=== PATIENT | female | born 1965 | race Caucasian/White ===

== ENCOUNTER 2022-10-10 16:52 | Outpatient (CLI) | payer BC ==
--- NOTE | 2022-10-11 09:27 | CT Report ---
PROCEDURE: Low Dose Lung Cancer Screen INDICATIONS: HIST OF TOBACCO USE, THYROID NODULE TECHNIQUE: Noncontrast low-dose axial images were acquired from the pulmonary apices to the posterior costophren ic angles. Multiplanar MIP reformats were then reconstructed. For radiation dose reduction, the follo wing was used: automated exposure control, adjustment of mA and/or kV according to patient size. COMPARISON: None. FINDINGS: Image quality: Good Lungs and pleura: No dense consolidation or pleural effusion. Bochdalek's hernias. Scattered scarring/atelectasis. No nodule identified measuring over 6 mm. Possible micronodule on geovanni ge on the right. Mediastinum, heart, and esophagus: No pathologic adenopathy. Heart size is normal. No hiatal hernia. Chest wall and thyroid: Unremarkable Upper abdomen: Gastric bypass anatomy. Low-attenuation liver dome lesions, probably cysts. Subcentime ter lesions are too small to characterize. Bones: No acute or suspicious osseous finding. IMPRESSION: Lung RADS 2: Continue annual screening. Reviewed by: Dez De Souza MD on 10/11/2022 9:26 AM PST Approved by: Dez De Souza MD on 10/11/2022 9:26 AM PST Station ID: [id number]
== END 2022-10-10 16:53 | disposition home or self-care (01) ==
LOC: DI 16:52
PROVIDERS: ATTEND Physician Assistant
DX: Z12.2 Encounter for screening for malignant neoplasm of respiratory organs (principal); Z87.891 Personal history of nicotine dependence

== ENCOUNTER 2022-10-15 07:16 | Outpatient (CLI) | payer BC ==
[2022-10-15 08:21] LABS: BASOPHILS % (AUTO) 0.7 %; EOSINOPHILS # (AUTO) 0.1 10^3/uL (0.0-0.7); EOSINOPHILS % (AUTO) 2.5 %; HCT - HEMATOCRIT 36.9 % (37.0-47.0); HGB - HEMOGLOBIN 12.1 g/dL (12.0-16.0); LYMPHOCYTES # (AUTO) 2.2 10^3/uL (1.5-3.5); MEAN CORPUSCULAR HEMOGLOBIN 30.9 pg (27.0-31.0); MEAN CORPUSCULAR HGB CONC 32.8 g/dL (32.0-36.0); MEAN CORPUSCULAR VOLUME 94.1 fL (81.0-99.0); MEAN PLATELET VOLUME 9.8 fL (7.9-10.8); MONOCYTES # (AUTO) 0.4 10^3/uL (0.0-1.0); MONOCYTES % (AUTO) 9.1 %; NEUTROPHILS # (AUTO) 1.7 10^3/uL (1.5-6.6); NEUTROPHILS % (AUTO) 38.5 %; PLT - PLATELET COUNT 277 10^3/uL (130-450); RED BLOOD COUNT 3.92 10^6/uL (4.20-5.40); RED CELL DISTRIBUTION WIDTH 12.9 % (12.0-15.0); WHITE BLOOD COUNT 4.4 x10^3/uL (4.8-10.8)
[2022-10-15 08:47] LABS: ALBUMIN 4.2 g/dL (3.2-5.5); ALBUMIN/GLOBULIN RATIO 1.4 (1.0-2.2); ALKALINE PHOSPHATASE 44 IU/L (42-121); ALT ALANINE AMINOTRANSFERASE 20 IU/L (10-60); AST ASPARTATE AMINOTRANSFERASE 36 IU/L (10-42); BILIRUBIN,TOTAL 0.7 mg/dL (0.2-1.0); BUN - BLOOD UREA NITROGEN 18 mg/dL (6-20); CALCIUM 9.1 mg/dL (8.5-10.3); CARBON DIOXIDE - CO2 27 mmol/L (21-32); CHLORIDE 102 mmol/L (101-111); CHOL/HDL RATIO 2.6 (<4.4); CHOLESTEROL 169 mg/dL; CREATININE 0.7 mg/dL (0.4-1.0); GFR - MDRD 86 (>89); GLUCOSE 95 mg/dL (70-100); HDL CHOLESTEROL 66 mg/dL; POTASSIUM 4.4 mmol/L (3.5-5.0); SODIUM 136 mmol/L (135-145); TOTAL PROTEIN 7.2 g/dL (6.7-8.2); TRIGLYCERIDES 28 mg/dL
[2022-10-15 08:53] LABS: THYROID STIMULATING HORMONE 1.69 uIU/mL (0.34-5.60)
[2022-10-15 08:55] LABS: FREE T4 (FREE THYROXINE) 0.83 ng/dL (0.58-1.64)
--- NOTE | 2022-10-15 10:33 | Ultrasound Report ---
PROCEDURE: Head or Neck Soft Tissue INDICATIONS: HIST OF TOBACCO USE, THYROID NODULE TECHNIQUE: Real-time scanning was performed of the thyroid gland, with image documentation. COMPARISON: None FINDINGS: Right: Thyroid lobe measures 4.6 x 1.4 x 1.8 cm, and is homogeneous in echotexture. Left: Thyroid lobe measures 4.6 x 1.0 x 1.7 cm, and is homogenous in echotexture. Isthmus: 2 mm thick. Nodule number: One Location: Right lobe superior-mid Size: 1.8 x 1.1 x 1.4 cm. Composition: Cystic Total points: 0 ACR TI-RADS category: 1 Nodule number: Two Location: Right lobe mid Size: 1.1 x 0.6 x 0.9 cm. Composition: Predominantly solid Echogenicity: Hypoechoic Shape: wider than tall. Margins: Smooth Echogenic foci: Punctate Total points: 7 ACR TI-RADS category: 5 Nodule number: Three Location: Right lobe medial Size: 0.8 x 0.5 x 0.7 cm. Composition: Solid Echogenicity: Hypoechoic Shape: wider than tall. Margins: Smooth Echogenic foci: None Total points: 4 ACR TI-RADS category: 4 Nodule number: Four Location: Left lobe inferior Size: 0.6 x 0.4 x 0.6 cm. Composition: Cystic and solid Echogenicity: Hypoechoic Shape: wider than tall. Margins: Smooth Echogenic foci: None Total points: 3 ACR TI-RADS category: 3 Nodule number: Five Location: Left lobe medial Size: 0.8 x 0.5 x 0.6 cm. Composition: Cystic Total points: 0 ACR TI-RADS category: 1 IMPRESSION: 1. Multiple thyroid nodules/cysts as above. 2. Nodule #2 at the right mid thyroid gland meets TI-RADS criteria for FNA recommendation. Follow-up for other nodules recommended as below. ACR TI-RADS definitions and recommendations: TI-RADS 1 (benign): 0 points. FNA not needed. TI-RADS 2 (not suspicious): 2 points. FNA not needed. TI-RADS 3 (mildly suspicious): 3 points. "FNA if 2.5 cm or larger, follow up if 1.5 cm or larger (at 1, 3, and 5 years). TI-RADS 4 (moderately suspicious): 4-6 points. "FNA if 1.5 cm or larger, follow up if 1 cm or larger (at 1, 2, 3, and 5 years). TI-RADS 5 (highly suspicious): 7 points or more. "FNA if 1 cm or larger, follow up if 0.5 cm or larger (every year for 5 years). Reviewed by: Genaro Vargas MD on 10/15/2022 10:31 AM PST Approved by: Genaro Vargas MD on 10/15/2022 10:31 AM PST Station ID: [id number]
== END 2022-10-15 07:17 | disposition home or self-care (01) ==
LOC: DI 07:16
PROVIDERS: ATTEND Physician Assistant
DX: E04.2 Nontoxic multinodular goiter (principal); Z13.220 Encounter for screening for lipoid disorders; Z98.0 Intestinal bypass and anastomosis status
CPT/HCPCS: 36415; 80053; 80061; 83721; 84439; 84443; 85025

== ENCOUNTER 2023-09-02 07:04 | Outpatient (CLI) | payer BC ==
[2023-09-02 14:36] LABS: BASOPHILS % (AUTO) 0.5 %; EOSINOPHILS # (AUTO) 0.1 10^3/uL (0.0-0.7); EOSINOPHILS % (AUTO) 1.7 %; HCT - HEMATOCRIT 35.7 % (37.0-47.0); HGB - HEMOGLOBIN 11.3 g/dL (12.0-16.0); LYMPHOCYTES # (AUTO) 2.2 10^3/uL (1.5-3.5); LYMPHOCYTES % (AUTO) 52.2 %; MEAN CORPUSCULAR HEMOGLOBIN 30.1 pg (27.0-31.0); MEAN CORPUSCULAR HGB CONC 31.7 g/dL (32.0-36.0); MEAN CORPUSCULAR VOLUME 94.9 fL (81.0-99.0); MEAN PLATELET VOLUME 10.6 fL (7.9-10.8); MONOCYTES # (AUTO) 0.4 10^3/uL (0.0-1.0); MONOCYTES % (AUTO) 9.7 %; NEUTROPHILS # (AUTO) 1.5 10^3/uL (1.5-6.6); NEUTROPHILS % (AUTO) 35.7 %; PLT - PLATELET COUNT 280 10^3/uL (130-450); RED BLOOD COUNT 3.76 10^6/uL (4.20-5.40); RED CELL DISTRIBUTION WIDTH 14.1 % (12.0-15.0); WHITE BLOOD COUNT 4.1 x10^3/uL (4.8-10.8)
[2023-09-02 14:42] LABS: PT - PROTHROMBIN TIME 11.2 secs (9.9-12.6)
[2023-09-02 14:57] LABS: % IRON SATURATION 34 % (20-50); ALBUMIN 4.1 g/dL (3.2-5.5); ALBUMIN/GLOBULIN RATIO 1.6 (1.0-2.2); ALKALINE PHOSPHATASE 51 IU/L (42-121); ALT ALANINE AMINOTRANSFERASE 19 IU/L (10-60); AST ASPARTATE AMINOTRANSFERASE 38 IU/L (10-42); BILIRUBIN,TOTAL 0.5 mg/dL (0.2-1.0); BUN - BLOOD UREA NITROGEN 15 mg/dL (6-20); CALCIUM 9.3 mg/dL (8.5-10.3); CARBON DIOXIDE - CO2 28 mmol/L (21-32); CHLORIDE 106 mmol/L (101-111); CHOL/HDL RATIO 2.7 (<4.4); CHOLESTEROL 162 mg/dL; CREATININE 0.6 mg/dL (0.6-1.3); GFR - MDRD 102 (>89); GLUCOSE 88 mg/dL (74-104); HDL CHOLESTEROL 61 mg/dL; IRON 111 ug/dL (50-212); LDL CHOLESTEROL,CALCULATED 91 mg/dL; LDL/HDL RATIO 1.5 (<4.4); POTASSIUM 4.2 mmol/L (3.5-4.5); SODIUM 137 mmol/L (135-145); TOTAL IRON BINDING CAPACITY 325 ug/dL (250-450); TOTAL PROTEIN 6.6 g/dL (6.4-8.9); TRANSFERRIN 232 mg/dL (203-362); TRIGLYCERIDES 49 mg/dL (48-352); VLDL CHOLESTEROL 10 mg/dL
[2023-09-02 15:03] LABS: PARTIAL THROMBOPLASTIN TIME 30.5 secs (24.9-33.3)
[2023-09-02 15:07] LABS: THYROID STIMULATING HORMONE 2.03 uIU/mL (0.34-5.60)
[2023-09-02 15:16] LABS: FERRITIN 13.2 ng/mL (11.0-306.8)
[2023-09-02 16:22] LABS: ESTIMATED AVERAGE GLUCOSE 111 mg/dL (70-100); HEMOGLOBIN A1c% 5.5 % (4.27-6.07)
== END 2023-09-02 07:05 | disposition home or self-care (01) ==
LOC: LAB.S 07:04
PROVIDERS: ATTEND Surgery
DX: Z01.812 Encounter for preprocedural laboratory examination (principal); E51.9 Thiamine deficiency, unspecified; E46 Unspecified protein-calorie malnutrition
CPT/HCPCS: 36415; 80053; 80061; 82306; 82607; 82728; 82746; 83036; 83540; 83721; 84425; 84443; 84466; 84481; 85025; 85610; 85730

== ENCOUNTER 2023-09-02 14:16 | Outpatient (CLI) | payer BC | END 2023-09-02 14:17 | disposition home or self-care (01) | LOC: RT 14:16 | PROVIDERS: ATTEND Nurse Practitioner Acute Care | DX: Z01.818 Encounter for other preprocedural examination (principal); E66.01 Morbid (severe) obesity due to excess calories; D64.9 Anemia, unspecified; E51.9 Thiamine deficiency, unspecified; E46 Unspecified protein-calorie malnutrition | CPT/HCPCS: 36415; 80053; 80061; 82306; 82607; 82728; 82746; 83036; 83540; 83721; 84425; 84443; 84466; 84481; 85025; 85610; 85730; 93005 ==